=== PATIENT | male | born 1995 | race Two or more races ===

== ENCOUNTER 2020-08-12 10:30 | Outpatient (REF) | payer OTHER, SELFPAY | END 2020-08-12 10:31 | disposition home or self-care (01) | LOC: HO.LAB 10:30 | PROVIDERS: Visit Provider Internal Medicine | DX: Z20.828 Contact with and (suspected) exposure to other viral communicable diseases (principal) | CPT/HCPCS: 36415; C9803; U0003 ==

== ENCOUNTER 2021-07-21 10:40 | Outpatient (REF) | payer OTHER, SELFPAY | END 2021-07-21 10:41 | disposition home or self-care (01) | LOC: HO.LAB 10:40 | PROVIDERS: Visit Provider Internal Medicine | DX: Z20.822 Contact with and (suspected) exposure to COVID-19 (principal) | CPT/HCPCS: C9803; U0003; U0005 ==

== ENCOUNTER 2022-12-14 07:10 | Emergency (ER) | payer OTHER, SELFPAY ==
--- NOTE | ~2022-12-14 | XR_ITS ---
EXAMINATION: XR KNEE, LEFT CLINICAL INFORMATION: Pain medial aspect during basketball COMPARISON: None available. TECHNIQUE: Four views of the left knee. FINDINGS: The tricompartment joint space is maintained normal. No bony erosive changes. No loose bodies. No visible acute fracture or dislocation seen. There is moderate inferior patellar spurring. No joint effusion seen. XR/XR knee LT 3V IMPRESSION: Moderate inferior patellar spurring. No visible acute fracture, dislocation or subluxation seen.
[2022-12-14 07:28] VITALS: BP 129/80; PULSE 73; RESP 16; TEMP 36.2; O2SAT 98; BMI 34.1
--- NOTE | 2022-12-14 07:44 | ED.EXTPRO ---
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 Playing basketball injured the medial aspect of his knee. No swelling, it has not been locking, pain with walking MD Complaint: joint pain (left knee) Onset (ago): day(s) Pain Consistency: intermittent Location: left Quality: sharp Related Data Previous Rx's Medication Instructions Recorded naproxen 500 mg tablet (Naprosyn) 500 mg PO BID #20 tabs 12/14/22 Allergies Allergy/AdvReac Type Severity Reaction Status Date / Time No Known Allergies Allergy Unverified 04/24/20 18:14 [No Known Allergies*] Review of Systems Review of Systems: Yes all other systems are reviewed and are negative Musculoskeletal: Musculoskeletal: Reports other (left knee pain) Neurologic: Denies Sensory deficit (Neuro) Physical Exam Vital Signs: Vital Signs: Last Vital Signs Temp 97.2 F 12/14/22 07:28 Pulse 73 12/14/22 07:28 Resp 16 12/14/22 07:28 BP 129/80 12/14/22 07:28 Pulse Ox 98 12/14/22 07:28 O2 Del Method Room Air 12/14/22 07:28 BMI result Body Mass Index 34.1 Const: General: healthy appearing Nutritional Appearance: average body habitus Orientation/consciousness: oriented to person and patient oriented x3 Limitations: no limitations HEENT: Head: Yes normal to inspection Ears: external ears normal General nose exam: Normal external nose present Mouth: Normal oral and palatal mucosa present and oropharynx normal Throat: Yes posterior oropharynx normal Eyes: General: appearance normal, both eyes and all related structures Neck: Other: supple Neck: Yes normal visual inspection Chest: Chest palpation & inspection: normal inspection of the chest Resp: Auscultation: clear to auscultation bilaterally Cardio: Jugular venous distension: no JVD Rate: regular rate Rhythm: regular rhythm Heart sounds: S1 normal heart sound present and S2 normal heart sound present GI: Inspection: Yes normal to inspection Palpation (GI): Soft to palpation, nontender and No hepatosplenomegaly present Auscultation: normal bowel sounds : General: Yes no CVA tenderness Back/Spine/Pelvis: Back: no CVA tenderness Skin: General skin exam: no rashes or lesions noted Neuro: General: oriented to person and patient oriented x3 Cranial nerves: Yes CN's II-XII intact bilaterally Motor exam (neuro): 5/5 motor strength present throughout Sensory Exam: No Sensory deficit (Neuro) Extrem: Other: left knee no effusion, pain to palpation along medial aspect Psych: Appearance: grossly normal Course Reevaluation(s) Reevaluation #1: xray with no fracture, likely medial meniscus injury will refer to ortho. Time: 08:22 Medical Decision Making Differential Diagnosis Differential Diagnoses: The differential diagnosis associated with the presentation includes (knee pain, meniscal injury, knee strain) Independent Interpretation I performed an independent interpretation of an: Plain X-Ray (knee: no fracture or effusion) Discharge Plan Discharge Clinical Impression: Knee strain, Acute meniscal injury of left knee Patient Disposition: Home, Self-Care Instructions: Knee Sprain (ED) Prescriptions: New naproxen [Naprosyn] 500 mg tablet 500 mg PO BID Qty: 20 0RF Referrals: [facility] [place] [facility] [Provider Group] - 5 days
[2022-12-14 09:14] VITALS: BP 128/72; PULSE 71; RESP 14; O2SAT 97
== END 2022-12-14 09:16 | disposition home or self-care (01) ==
PROVIDERS: Emergency Provider Emergency Medicine
DX: S86.912A Strain of unspecified muscle(s) and tendon(s) at lower leg level, left leg, initial encounter (principal); S83.8X2A Sprain of other specified parts of left knee, initial encounter; X50.9XXA Other and unspecified overexertion or strenuous movements or postures, initial encounter; Y93.67 Activity, basketball; Y92.310 Basketball court as the place of occurrence of the external cause; Y99.9 Unspecified external cause status
CPT/HCPCS: 73562; 99283; 99284

== ENCOUNTER 2023-01-07 07:26 | Outpatient (REF) | payer OTHER, SELFPAY ==
--- NOTE | ~2023-01-07 | XR_ITS ---
EXAMINATION: XR LEFT KNEE 1 VIEW CLINICAL INDICATION: Left knee pain. TECHNIQUE: [place] 1 patellar view. FINDINGS: The patellofemoral joint space is maintained. No bony erosive changes or cortical thickening. No loose bodies seen either. XR/XR knee LT 1V IMPRESSION: Unremarkable single left knee patellofemoral view.
== END 2023-01-07 07:27 | disposition home or self-care (01) ==
LOC: HO.HOSX 07:26
PROVIDERS: Visit Provider Physician Assistant
DX: M94.262 Chondromalacia, left knee (principal)
CPT/HCPCS: 73560; 99202

== ENCOUNTER 2023-08-24 22:00 | Emergency (ER) | payer OTHER, SELFPAY ==
--- NOTE | ~2023-08-24 | XR_ITS ---
EXAMINATION: LEFT ANKLE, LEFT KNEE CLINICAL INFORMATION: Fall COMPARISON: Left knee 01/07/2023 TECHNIQUE: 4 views left knee, 3 views left ankle FINDINGS: No significant bone, joint or soft tissue abnormality is seen involving the knee. There is mild soft tissue swelling bilaterally involving the ankle. Some irregularity is seen with osteophytes on the lateral border of the medial malleolus. No acute finding is seen. No joint effusion or fractures are seen. XR/XR knee LT 4V IMPRESSION: No evidence of an acute osseous injury. Mild soft tissue swelling around the ankle.
--- NOTE | ~2023-08-24 | XR_ITS ---
EXAMINATION: LEFT ANKLE, LEFT KNEE CLINICAL INFORMATION: Fall COMPARISON: Left knee 01/07/2023 TECHNIQUE: 4 views left knee, 3 views left ankle FINDINGS: No significant bone, joint or soft tissue abnormality is seen involving the knee. There is mild soft tissue swelling bilaterally involving the ankle. Some irregularity is seen with osteophytes on the lateral border of the medial malleolus. No acute finding is seen. No joint effusion or fractures are seen. XR/XR ankle LT min 3V IMPRESSION: No evidence of an acute osseous injury. Mild soft tissue swelling around the ankle.
[2023-08-24 22:12] VITALS: BP 122/77; PULSE 74; RESP 14; TEMP 36.5; O2SAT 94; BMI 35.9
--- NOTE | 2023-08-24 23:11 | ED_ITS ---
HPI - Fall General Chief Complaint: Fall Stated Complaint: work inj - left knee and ankle pain Time Seen by Provider: 08/24/23 22:59 Source: patient Mode of arrival: ambulatory Limitations: no limitations History of Present Illness HPI Narrative: Patient comes to the emergency room complaining of left ankle and left knee pain. Patient states that he was working for [employer], patient slipped on ice. Patient did not hit his head, did not lose consciousness, patient not on blood thinners. Patient states that his boss made him come to the emergency room to get assessed. Patient states that he can walk and bear weight but it hurts doing so. Related Data Previous Rx's Medication Instructions Recorded naproxen 500 mg tablet (Naprosyn) 500 mg PO BID #20 tabs 12/14/22 ibuprofen 600 mg tablet 600 mg PO TID PRN fever or pain 08/24/23 #20 tabs Allergies Allergy/AdvReac Type Severity Reaction Status Date / Time No Known Allergies Allergy Verified 08/24/23 22:12 [No Known Allergies*] Review of Systems Review of Systems: Constitutional : No Weight loss, No Fever, No Chills, No Night Sweats, No Fatigue, No Malaise ENT/Mouth : No Hearing loss, No Ear Pain, No Nasal Congestion, No Sinus Pain, No Hoarseness, No sore throat, No Rhinorrhea, No Swallowing Difficulty Eyes: No Eye Pain, No Swelling, No Redness, No Foreign Body, No Discharge, No Vision Changes Cardiovascular : No Chest Pain, No SOB, No Dyspnea on Exertion, No Orthopnea, No Edema, No Palpitations Respiratory : No Cough, No Sputum, No Wheezing, No Smoke Exposure, No Dyspnea Gastrointestinal : No Nausea, No Vomiting, No Diarrhea, No Constipation, No abdominal Pain, No Hematochezia, No Melena Genitourinary : no irregular bleeding, No Dysuria, No Urinary Frequency, No Hematuria, No Urinary Incontinence, No Urgency, No Flank Pain, No Urinary Flow Changes, No Hesitancy Musculoskeletal : Complaining of left ankle pain and swelling, No Myalgias, No Joint Swelling Skin : No Skin Lesions, No rash Neuro : No Weakness, No Numbness, No Paresthesias, No Loss of Consciousness, No Dizziness, No Headache Psych : No Anxiety/Panic, No Depression, No SI/HI/AH/VH, No Social Issues, Heme/Lymph: No Bruising, No Bleeding,No Lymphadenopathy Endocrine : No Polyuria, No Polydipsia, No Temperature Intolerance [facility] Social History Social History (Updated 01/07/23 @ 08:35 by TIAN Torres) Alcohol intake: never Advance Directives: No Advance Directives Information Provided: No 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 Oriented X3. No acute distress. Eyes: Pupils equal, round and reactive to light. ENT: Pharynx normal. Neck: Normal inspection. Neck supple. No lymph nodes noted. No crepitus CVS: Normal heart rate and rhythm. Pulses normal. Normal S1 and S2 Respiratory: No respiratory distress. Breath sounds normal. No Wheezing. No rales Abdomen: Soft and nontender. No rigidity. No distention. Skin: Skin warm and dry. Normal skin color. Normal skin turgor. Extremities: No lower extremity edema. No Lacerations. No Rash. Very minimal swelling to the lateral malleolus of the left ankle, the left knee within normal limits, able to flex and extend but hurts doing so. No knee instability, negative drawer test. No obvious effusion Neuro: Oriented X 3. No motor deficit. No sensory deficit. Moving all extremities. No slurred speech. CN 2 through 12 grossly intact Psych: calm, cooperative, normal affect Medications Administered Discontinued Medications Generic Name Dose Route Start Last Admin Trade Name Freq PRN Reason Stop Dose Admin Ibuprofen 600 mg 08/24/23 23:13 08/24/23 23:22 Ibuprofen 600 Mg Tablet PO 08/24/23 23:14 600 mg ONCE ONE Administration Medical Decision Making Medical Decision Making [facility] Narrative: -patient received 1 dose of p.o. Motrin -my interpretation of x-rays of the left ankle and left knee, both within normal limits, normal alignment Differential Diagnosis Differential Diagnoses: The differential diagnosis associated with the presentation includes (Knee/ankle sprain, dislocation, fracture) Independent Interpretation I performed an independent interpretation of an: Plain X-Ray Radiology Impression Discussion of test interpretation with radiology: I have reviewed the radiologist's reading. Radiologist Impression: FINDINGS: No significant bone, joint or soft tissue abnormality is seen involving the knee. There is mild soft tissue swelling bilaterally involving the ankle. Some irregularity is seen with osteophytes on the lateral border of the medial malleolus. No acute finding is seen. No joint effusion or fractures are seen. XR/XR ankle LT min 3V IMPRESSION: No evidence of an acute osseous injury. Mild soft tissue swelling around the ankle. Discharge Plan Discharge Clinical Impression: Ankle sprain, Knee sprain Patient Disposition: Home, Self-Care Instructions: Ankle Sprain (ED), Knee Sprain (ED), R.I.C.E. Treatment (ED) Additional Instructions: Please follow-up with your primary care physician tomorrow. If you have any worsening or new symptoms, please return to the emergency room or call 911 Prescriptions: New ibuprofen 600 mg tablet 600 mg PO TID PRN (Reason: fever or pain) Qty: 20 0RF No Action naproxen [Naprosyn] 500 mg tablet 500 mg PO BID Qty: 20 0RF Referrals: Gonzalo Calderon MD [Physician] - 08/25/23
[2023-08-24] MEDS: Ibuprofen 600 MG TABLET PO (23:22)
== END 2023-08-25 00:53 | disposition home or self-care (01) ==
PROVIDERS: Emergency Provider Emergency Medicine
DX: S93.402A Sprain of unspecified ligament of left ankle, initial encounter (principal); S83.92XA Sprain of unspecified site of left knee, initial encounter; W00.2XXA Other fall from one level to another due to ice and snow, initial encounter; Y93.01 Activity, walking, marching and hiking; Y92.480 Sidewalk as the place of occurrence of the external cause; Y99.0 Civilian activity done for income or pay
CPT/HCPCS: 73564; 73610; 99283

== ENCOUNTER 2023-09-06 09:00 | Emergency (ER) | payer OTHER, SELFPAY ==
[2023-09-06 09:02] VITALS: BP 121/69; PULSE 70; RESP 19; TEMP 36.6; O2SAT 98; BMI 36.0
--- NOTE | 2023-09-06 10:55 | ED_ITS ---
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 Patient was seen here on August 24 after injuring his left ankle and left knee at his work. He works for [employer] and he accidentally slipped on ice. X-rays of his left ankle and knee were performed without any bony abnormalities. He states that he was feeling well and returned back to work however states that he had a take 2 days off due to pain. His employer is requesting a note to return back to work. Patient denies any new trauma or injury. He is otherwise feeling well. He denies any knee or ankle pain at this time. No other complaints or concerns at this time. MD complaint: Follow-up on left knee and ankle migue Onset (ago): day(s) Location: lower extremity Radiation: non-radiation Relieving factors: none Exacerbating factors: none Associated symptoms: denies other symptoms Treatments prior to arrival: none Related Data Previous Rx's Medication Instructions Recorded naproxen 500 mg tablet (Naprosyn) 500 mg PO BID #20 tabs 12/14/22 ibuprofen 600 mg tablet 600 mg PO TID PRN fever or pain 08/24/23 #20 tabs Allergies Allergy/AdvReac Type Severity Reaction Status Date / Time No Known Allergies Allergy Verified 09/06/23 09:02 [No Known Allergies*] Review of Systems Review of Systems: Yes all other systems are reviewed and are negative [facility] Social History Social History (Updated 01/07/23 @ 08:35 by TIAN Torres) Alcohol intake: never Advance Directives: No 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 No acute distress. HEENT: Normal inspection CVS: Normal heart rate and rhythm. Pulses normal. Respiratory: No respiratory distress Skin: Warm, dry, no rashes noted to exposed skin. Normal skin color. Normal skin turgor. Extremities: Left knee, with no bony abnormalities, no edema or increased warmth. Full range of motion without difficulty. No joint laxity with varus and valgus strain. Negative anterior and posterior drawer test. Left ankle with no bony abnormalities, edema or erythema. Full range of motion without difficulty. Ambulatory with steady gait. DP pulse 2 + Neuro: Oriented X 3. No motor deficit. No sensory deficit. Medical Decision Making Medical Decision Making MDM Narrative: This is a 27-year-old male presenting to the emergency department for evaluation of left knee and ankle pain follow-up. He was seen last week for left knee and ankle pain and needs a work note to return back to work. He denies any new injury or trauma to his knee or ankle. He states that his pain has since resolved. He has been taking ibuprofen as needed. Denies any fevers or chills. He is otherwise feeling well. Work note given, given return precautions as well as orthopedic follow-up if he does have continued and ongoing left knee and ankle pain. He understands and agrees with plan. Stable for discharge Differential Diagnosis Differential Diagnoses: The differential diagnosis associated with the presentation includes Sprain, strain, contusion, fracture, work note Discharge Plan Discharge Clinical Impression: Ankle sprain, Knee sprain Patient Disposition: Home, Self-Care Instructions: Knee Sprain (ED), R.I.C.E. Treatment (ED) Additional Instructions: You were seen in the emergency department for follow-up regarding your ankle and knee pain. You had a normal physical exam today. You are allowed to return back to work. If you develop pain and symptoms, you may continue using ibuprofen, icing, and resting has this may provide you with some relief. If any new or worsening symptoms occur including but not limited to worsening pain, swelling, increased redness, please return for re-evaluation. If you continue to have pain or symptoms, you may follow-up with Orthopedics, call to make an appointment. Fue atendido en el departamento de emergencias para un seguimiento debido a valdivia dolor de tobillo y rodilla. Tuviste un examen f?sico normal hoy. Se le permite regresar al trabajo. Si presenta dolor y s?ntomas, puede continuar usando ibuprofeno, aplicar hielo y descansar, ya que esto puede brindarle cierto alivio. Si se presenta alg?n s?ntoma nuevo o que empeora, incluidos, entre otros, empeoramiento del dolor, hinchaz?n o aumento del enrojecimiento, regrese para shona nueva evaluaci?n. Si contin?a teniendo dolor o s?ntomas, puede realizar un seguimiento con [employer], llame para programar shona miguel angel. Prescriptions: No Action ibuprofen 600 mg tablet 600 mg PO TID PRN (Reason: fever or pain) Qty: 20 0RF naproxen [Naprosyn] 500 mg tablet 500 mg PO BID Qty: 20 0RF [place] [facility] [place] [facility] [Provider Group] Stand Alone Forms: Work/School Release Print Language: [place]an
[2023-09-06 11:06] VITALS: BP 130/84; PULSE 74; RESP 16; TEMP 36.6; O2SAT 98
== END 2023-09-06 11:08 | disposition home or self-care (01) ==
PROVIDERS: Emergency Provider Emergency Medicine Emergency Medical Services
DX: S93.402A Sprain of unspecified ligament of left ankle, initial encounter (principal); M25.572 Pain in left ankle and joints of left foot; W01.10XA Fall on same level from slipping, tripping and stumbling with subsequent striking against unspecified object, initial encounter; Y93.9 Activity, unspecified; Y92.9 Unspecified place or not applicable; Y99.0 Civilian activity done for income or pay
CPT/HCPCS: 99283; 99284

== ENCOUNTER 2024-06-14 19:00 | Emergency (ER) | payer OTHER, SELFPAY ==
--- NOTE | ~2024-06-14 | XR_ITS ---
EXAMINATION: XR CHEST CLINICAL INFORMATION: Cough. COMPARISON: None available. TECHNIQUE: 2 views of the chest were obtained. FINDINGS: Low lung volumes with bronchovascular crowding. No consolidation, pleural effusion or pneumothorax. No evidence of pulmonary edema. Normal appearance of the cardiomediastinal silhouette. No acute osseous findings. Visualized upper abdomen is within normal limits. XR/XR chest 2V IMPRESSION: Low lung volumes with bronchovascular crowding. No focal consolidation, pleural effusion or pneumothorax. Electronically signed by: Cindy Arana MD 06/14/2024 09:58 PM EST
--- NOTE | 2024-06-14 19:02 | ED.ASTHMA ---
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 RME assessment and note performed by: Padmini Barboza PA-C This is a [id number]-male, with a hx of asthma who presents to the ER with complaints of Discharge Plan Discharge Prescriptions: No Action ibuprofen 600 mg tablet 600 mg PO TID PRN (Reason: fever or pain) Qty: 20 0RF naproxen [Naprosyn] 500 mg tablet 500 mg PO BID Qty: 20 0RF Print Language: Malaysian
[2024-06-14 19:03] VITALS: BP 130/81; PULSE 91; RESP 16; TEMP 36.6; O2SAT 96; BMI 34.9
--- NOTE | 2024-06-14 19:06 | ED_ITS ---
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 He reports some improvement with his albuterol inhalers and nebulizers He denies any sick contacts fevers, chills. He denies any recent travel He smokes marijuana but not tobacco Reports wheezing intermittently Related Data Previous Rx's ?Medication ?Instructions ?Recorded naproxen 500 mg tablet (Naprosyn) 500 mg PO BID #20 tabs 12/14/22 ibuprofen 600 mg tablet 600 mg PO TID PRN fever or pain 08/24/23 #20 tabs benzonatate 200 mg capsule 200 mg PO TID PRN cough #20 caps 06/15/24 prednisone 20 mg tablet 40 mg (2 x 20 mg) PO DAILY #10 tabs 06/15/24 Allergies Allergy/AdvReac Type Severity Reaction Status Date / Time No Known Allergies Allergy Verified 06/14/24 19:09 [No Known Allergies*] Review of Systems Constitutional: Constitutional: Denies body ache(s), Denies chills and Denies fever(s) Eyes: Eyes: Denies blurry vision ENT: Denies vertigo and Denies dizziness Cardiovascular: Cardiovascular: Reports dyspnea Respiratory: Respiratory: Reports cough, Reports pain with cough, Reports dyspnea and Reports wheezing Gastrointestinal: Gastrointestinal: Denies abdominal pain, Denies nausea and Denies vomiting Musculoskeletal: Musculoskeletal: Denies back pain Integumentary/Breasts: Skin/Breast: Denies rash Neurologic: Denies vertigo and Denies dizziness Allergic/Immunologic: Allergic/Immunologic: Reports wheezing [facility] Social History Social History (Updated 01/07/23 @ 08:35 by TIAN Torres) Alcohol intake: never 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 Physical Exam Vital Signs: Vital Signs: Last Vital Signs Temp 97.6 F 06/14/24 22:18 Pulse 82 06/14/24 22:18 Resp 16 06/14/24 22:18 BP 150/83 H 06/14/24 22:18 Pulse Ox 97 06/14/24 22:18 O2 Del Method Room Air 06/14/24 22:18 BMI result Body Mass Index 34.9 Const: General: healthy appearing, comfortable, no acute distress, alert and awake Nutritional Appearance: well nourished Orientation/consciousness: patient oriented x3 HEENT: Head: Yes normocephalic and Yes atraumatic Eyes: Eyelids: Yes eyelids normal Conjunctivae: conjunctivae normal Sclerae: sclerae normal Corneas: corneas normal Pupils: Equal, round and reactive pupils present EOM: EOMs intact bilaterally Neck: Neck: Yes full ROM Resp: Other: Expiratory wheeze heard best in the right lung base Effort & Inspection: normal respiratory effort, able to speak in complete sentences and not labored Cardio: Rate: regular rate Rhythm: regular rhythm Skin: General skin exam: no rashes or lesions noted and elasticity normal Neuro: General: patient oriented x3 Cranial nerves: Yes Equal, round and reactive pupils present and Yes Bilaterally intact EOM present Cognition (Neuro): normal cognition Course Course Course Narrative: This is an RME: Additional HPI, ROS, PE not included below will be deferred to primary provider. RME assessment and note performed by: Padmini Barboza PA-C This is a [id number]-male, with a hx of asthma who presents to the ER with complaints of chest pain and cough x 8 days. Reporting SOB. Fevers chills and body aches 6 days ago however states that this has improved. He has been using nebulizer at home. Plan: viral swabs, cxr Medical Decision Making Medical Decision Making [facility] Narrative: 28-year-old male with history of asthma presents for evaluation of cough, shortness of breath. His vital signs are stable, his chest x-ray does not show any pneumonia but does show bronchial crowding. His viral swabs are negative. Is faint wheeze on exam consistent with asthma exacerbation likely related to a viral illness. We will treat with prednisone and benzonatate. Differential Diagnosis Differential Diagnoses: The differential diagnosis associated with the presentation includes Acute asthma exacerbation Bronchitis Pneumonia CHF less likely Lab Data [facility] Lab Attestation statement: I reviewed the patient's lab results. Viral swabs negative Labs: Lab Results 06/14/24 Range/Units 19:54 Influenza Type A (PCR) NEGATIVE (Negative) Influenza Type B (PCR) NEGATIVE (Negative) RSV RNA Qual (PCR) NEGATIVE (Negative) SARS-CoV-2 RNA (RT-PCR) NEGATIVE (Negative) S. pyogenes GrpA ILDEFONSO Negative (Negative) Independent Interpretation I performed an independent interpretation of an: Plain X-Ray (Agree with Radiology interpretation) Radiology Impression Discussion of test interpretation with radiology: I have reviewed the radiologist's reading. Radiologist Impression: FINDINGS: Low lung volumes with bronchovascular crowding. No consolidation, pleural effusion or pneumothorax. No evidence of pulmonary edema. Normal appearance of the cardiomediastinal silhouette. No acute osseous findings. Visualized upper abdomen is within normal limits. XR/XR chest 2V IMPRESSION: Low lung volumes with bronchovascular crowding. No focal consolidation, pleural effusion or pneumothorax. Electronically signed by: Cindy Arana MD 06/14/2024 09:58 PM [facility] [place] Discharge Plan Discharge Clinical Impression: Asthma exacerbation Patient Disposition: Home, Self-Care Instructions: Asthma (ED) Additional Instructions: Take prednisone 40 mg daily for the next 5 days Use benzonatate as needed for coughing Your chest x-ray did not show pneumonia in your viral swabs were negative Follow-up with your primary doctor You may also continue to use your inhalers as needed Prescriptions: New benzonatate 200 mg capsule 200 mg PO TID PRN (Reason: cough) Qty: 20 0RF prednisone 20 mg tablet 40 mg PO DAILY Qty: 10 0RF No Action ibuprofen 600 mg tablet 600 mg PO TID PRN (Reason: fever or pain) Qty: 20 0RF naproxen [Naprosyn] 500 mg tablet 500 mg PO BID Qty: 20 0RF Stand Alone Forms: Work/School Release Print Language: German
--- NOTE | 2024-06-14 19:56 | MHC.EDTECH ---
Patient brought into triage area,Sars/flu/rsv,and strep swabs obtained and sent to lab.
[2024-06-14 20:10] LABS: IDNOW Serial# 08D9AD1C; Strep A Nucleic Acid Negative (Negative)
[2024-06-14 20:42] LABS: Influenza A PCR NEGATIVE (Negative); Influenza B PCR NEGATIVE (Negative); Resp Syncy Virus RNA Qual PCR NEGATIVE (Negative); SARS COV2 PCR INHOUSE NEGATIVE (Negative)
[2024-06-14 22:18] VITALS: BP 150/83; PULSE 82; RESP 16; TEMP 36.4; O2SAT 97
[2024-06-15] MEDS: predniSONE 20 MG TABLET 40 MG PO (01:37)
[2024-06-15] MEDS: Benzonatate 100 MG CAPSULE 200 MG PO (01:37)
[2024-06-15 01:42] VITALS: BP 150/83; PULSE 82; RESP 16; TEMP 36.4; O2SAT 97
== END 2024-06-15 01:42 | disposition home or self-care (01) ==
PROVIDERS: Physician Assistant Medical; Emergency Provider Internal Medicine
DX: J45.901 Unspecified asthma with (acute) exacerbation (principal); Z03.818 Encounter for observation for suspected exposure to other biological agents ruled out; R06.02 Shortness of breath
CPT/HCPCS: 0241U; 71046; 87651; 99282; 99283